=== PATIENT | male | born 1955 | race Caucasian/White ===

== ENCOUNTER → 2016-04-24 | Outpatient (CLI) | payer MEDICARE, MEDICAID ==
[~2016-04-24] MED LIST: AMARYL PO; AMLODIPINE10 MG PO; AMOXICILLIN/CLA1 TA1 PO; BACTRIM DS 8001 TAB PO; BENEMID500 MG PO; BETIMOL 2.5 ML2.5 M1 OP; CEPHALEXIN500 M1 PO; COLACE 100100 MG/CAP PO; FOLIC ACID 11 MG/TA1 PO; GLUCOTROL 5M5 MG/TAB PO; GLYBURIDE MICRON3 MG PO; LASIX 20MG TABL20 MG PO; LASIX 40MG TABL40 MG PO; LISINOPRIL/HCTZ1 TA2 PO; LISINOPRIL20 MG PO; LOPRESSOR 225 MG/TAB PO; LOPRESSOR 550 MG/TAB PO; LOPRESSOR100 MG PO; LOVENOX 3030 MG/0.3 SQ; METFORMIN HCL850 MG PO; METFORMIN500 MG PO; MILK OF MA400 MG/5 M PO; MILK OF MA400 MG/51 PO; MULTIPLE VITAMI1 CAP PO; NAPROXEN500 M1 PO; NEPHROCAP PO; NORCO 325 MG-51 TAB PO; NORCO 325 MG-7.1 TAB PO; NORVASC 10MG10 MG PO; NORVASC10 MG PO; NOVOLOG 100U100 U/M1; NOVOLOG 100U100 U/M1 SQ; PHENERGAN 25 TA25 MG PO; PHENERGAN25 MG/ML IM; PHOS LO; PREDNISOLONE; PRINCIPEN500 MG PO; PRINIVIL5 MG PO; ROXICODONE 55 MG/TAB PO; SENOKOT8.6 MG PO; SIMVASTATIN20 MG PO; SODIUM BICARBO650 MG PO; TOPROL XL 25MG25 MG PO; TUMS500 MG; TUMS500 MG PO; TYLENOL 325MG325 MG PO; TYLENOL ARTHRI650 M1 PO; ULTRAM 50MG TAB50 MG PO; VANCOCIN HCL1 GM IV; VITAMIN C500 MG PO; VTAMINC250TA PO; ZESTRIL 10MG10 MG PO; ZOCOR 20MG20 MG PO; ZOCOR 40MG40 MG PO; [UNRECOGNIZED DRUG - OTHER]; [UNRECOGNIZED DRUG - OTHER] OP
== END ==
LOC: WCC 09:00
DX: L97.311 Non-pressure chronic ulcer of right ankle limited to breakdown of skin (principal); R60.0 Localized edema; E66.01 Morbid (severe) obesity due to excess calories
CPT/HCPCS: 17717; 27517; A6207; A6212; G0463

== ENCOUNTER → 2016-05-01 | Outpatient (CLI) | payer MEDICARE, MEDICAID | LOC: WCC 10:56 | DX: E11.621 Type 2 diabetes mellitus with foot ulcer (principal); L97.919 Non-pressure chronic ulcer of unspecified part of right lower leg with unspecified severity; Z89.512 Acquired absence of left leg below knee | CPT/HCPCS: G0463 ==

== ENCOUNTER → 2016-05-08 | Outpatient (CLI) | payer MEDICARE, MEDICAID | LOC: WCC 10:30 | DX: E11.621 Type 2 diabetes mellitus with foot ulcer (principal); L89.92 Pressure ulcer of unspecified site, stage 2; Z89.512 Acquired absence of left leg below knee | CPT/HCPCS: 17717; 27510; A6197; A6212; G0463 ==

== ENCOUNTER → 2016-05-15 | Outpatient (CLI) | payer MEDICARE, MEDICAID | LOC: WCC 08:48 | DX: E11.621 Type 2 diabetes mellitus with foot ulcer (principal); L89.899 Pressure ulcer of other site, unspecified stage | CPT/HCPCS: G0463 ==

== ENCOUNTER → 2017-08-07 | Outpatient (CLI) | payer MEDICARE | LOC: COL.RAD 11:10 | DX: I51.7 Cardiomegaly (principal); J98.6 Disorders of diaphragm; M48.56XD Collapsed vertebra, not elsewhere classified, lumbar region, subsequent encounter for fracture with routine healing; R09.89 Other specified symptoms and signs involving the circulatory and respiratory systems; N19 Unspecified kidney failure ==